=== PATIENT | female | born 1990 ===

== ENCOUNTER 2023-11-12 20:42 | Emergency (ER) | payer BC, MEDICAID, SELFPAY ==
[2023-11-12 20:52] VITALS: BP 148/93; PULSE 88; RESP 17; TEMP 36.6; O2SAT 100
[2023-11-12] MEDS: HYDROcodone/acetaminophen (*CRX) 5-325 MG TABLET 1 TAB PO (21:29)
--- NOTE | 2023-11-12 21:52 | ED.GENADULT ---
HPI - General Adult General Chief complaint: Dental/Oral Stated complaint: left lower tooth Time Seen by Provider: 11/12/23 20:59 History of Present Illness HPI narrative: This is a 32-year-old female presenting ED with dental pain. Patient has pain in her low left lower molars. She has seen a dentist but does not have dental insurance this time. She is scheduled to get a root canal in December. The dentist placed patient on Motrin and Zithromax. Related Data Allergies Allergy/AdvReac Type Severity Reaction Status Date / Time Penicillins Allergy Hives Verified 11/12/23 20:45 Exam Narrative: APPEARANCE: No apparent distress. Head: No evidence of infection abscess. Back left molar has a crown. EYES: EOMI, NOSE: Atraumatic NECK: Trachea midline RESPIRATORY: No increased rate of breathing CARDIOVASCULAR: RRR, ABDOMINAL: Non-distended MUSCULOSKELETAl: No obvious deformities NEURO: Alert. Moving 4/4 extremities SKIN:: Warm, dry. Normal color PSYCHIATRIC: Normal affect Course Vital Signs Vital signs: Vital Signs Temperature 97.8 F 11/12/23 20:52 Pulse Rate 88 11/12/23 20:52 Respiratory Rate 17 11/12/23 20:52 Blood Pressure 148/93 H 11/12/23 20:52 Pulse Oximetry 100 11/12/23 20:52 Temperature 97.8 F 11/12/23 20:52 Pulse Rate 88 11/12/23 20:52 Respiratory Rate 17 11/12/23 20:52 Blood Pressure 148/93 H 11/12/23 20:52 Pulse Oximetry 100 11/12/23 20:52 Medical Decision Making [facility] Narrative Medical decision making narrative: -Course: 32-year-old female presenting dental pain. Patient given [place] a dental block performed. Patient discharged dental follow-up. -Procedures: Inferior alveolar block -Interventions: Keystone 5mg -Shared decision making / Disposition: Discharge -RX: Motrin Tylenol Vital Signs Vital Signs: Vital Signs Temperature 97.8 F 11/12/23 20:52 Pulse Rate 88 11/12/23 20:52 Respiratory Rate 17 11/12/23 20:52 Blood Pressure 148/93 H 11/12/23 20:52 Pulse Oximetry 100 11/12/23 20:52 Temperature 97.8 F 11/12/23 20:52 Pulse Rate 88 11/12/23 20:52 Respiratory Rate 17 11/12/23 20:52 Blood Pressure 148/93 H 11/12/23 20:52 Pulse Oximetry 100 11/12/23 20:52 Discharge Plan Discharge Clinical Impression: Toothache Patient Disposition: Home, Self-Care Condition: Stable Instructions: Antibiotic Form, Toothache (ED) Additional Instructions: Take Motrin Tylenol for pain. Follow up with a dentist. Prescriptions: New ibuprofen 800 mg tablet 800 mg PO TID PRN (Reason: pain) 7 Days Qty: 21 0RF acetaminophen 500 mg tablet 1,000 mg PO TID PRN (Reason: marcos) 7 Days Qty: 42 0RF Follow-up/Referrals: PHYSICIAN,[employer] [Primary Care Provider] - Stand Alone Forms: Work/School Release IP
== END 2023-11-12 22:10 | disposition home or self-care (01) ==
PROVIDERS: Emergency Provider Emergency Medicine
DX: K08.89 Other specified disorders of teeth and supporting structures (principal)
CPT/HCPCS: 99283; A9270